=== PATIENT | male | born 1960 | race Caucasian/White ===

== ENCOUNTER 2018-11-25 05:13 | Day surgery (SDC) ==
[2018-11-20 12:27] LABS: HEMATOCRIT 44.9 % (42.0-52.0); MCH 28.6 PG (27-31); MCHC 33.4 g/dL (33-37); MCV 85.7 FL (81-99); MPV 10.5 FL (7.4-10.4); RBC 5.24 XMIL (4.7-6.1); WBC 9.45 X1000 (4.8-10.8)
[2018-11-20 12:54] LABS: AGAP 11; BUN 19 mg/dL (8-22); CALCIUM 9.6 mg/dL (8.8-10.2); CHLORIDE 99 mmol/L (98-107); COSMO 275; CREATININE 0.8 mg/dL (0.7-1.2); ESTIMATED GFR > 60; GLUCOSE 143 mg/dL (70-104); POTASSIUM 3.9 mmol/L (3.5-5.1); SODIUM 135 mmol/L (136-145); TCO2 25 mmol/L (25-35)
[2018-11-25] MEDS ORDERED: KEFZOL 1 GM/D5W 2 GM/100 ML IVPB ONE (06:04)
[2018-11-25] MEDS ORDERED: LR 500 ML ONE (06:04)
[2018-11-25] MEDS ORDERED: DIPRIVAN 1% ONE (06:28)
[2018-11-25] MEDS ORDERED: LR 1,000 ML ONE (06:33)
[2018-11-25] MEDS ORDERED: B & O 16A SUPP ONE (06:33)
[2018-11-25] MEDS ORDERED: SENSORCAINE 0.25%/EPI 1:200,000 ONE (06:33)
[2018-11-25] MEDS ORDERED: FENTANYL ONE (07:26)
[2018-11-25 08:01] LABS: BILIRUBIN URINE NEGATIVE (NEGATIVE); BLOOD URINE NEGATIVE (NEGATIVE); COLOR YELLOW; GLUCOSE URINE NEGATIVE (NEGATIVE); KETONE URINE NEGATIVE (NEGATIVE); LEUKOCYTES URINE NEGATIVE (NEGATIVE); NITRITE URINE NEGATIVE (NEGATIVE); PROTEIN URINE NEGATIVE (NEGATIVE); SP GRAVITY URINE 1.017; TURBIDITY URINE HAZY (CLEAR); UROBILINOGEN URINE NORMAL (NORMAL)
[2018-11-25] MEDS ORDERED: QUELICIN (DOSE) ONE (08:01)
[2018-11-25] MEDS ORDERED: ZEMURON ONE (08:01)
[2018-11-25] MEDS ORDERED: DECADRON ONE (08:01)
[2018-11-25] MEDS ORDERED: XYLOCAINE-MPF 2% ONE (08:01)
[2018-11-25] MEDS ORDERED: OFIRMEV 1000 MG/ISOTONIC SOLN 1,000 MG/100 ML BOTTLE ONE (08:01)
[2018-11-25] MEDS ORDERED: ZOFRAN ONE (08:01)
[2018-11-25 08:02] LABS: UR EPITHELIAL CELLS <10 /HPF (<10); URINE BACTERIA NEGATIVE /HPF; URINE RBC <10 /HPF (<10); URINE SOURCE CATH; URINE WBC <10 /HPF (<10)
[2018-11-25] MEDS ORDERED: EPHEDRINE ONE (08:28)
[2018-11-25] MEDS ORDERED: NS 1,000 ML ONE (12:43)
[2018-11-25] MEDS: DILAUDID ONE ×2 (13:00→13:04)
[2018-11-25] MEDS ORDERED: DITROPAN PO PRN (14:30)
[2018-11-25] MEDS ORDERED: OFIRMEV 1000 MG/ISOTONIC SOLN 1,000 MG/100 ML BOTTLE IV PRN (14:30)
[2018-11-25] MEDS ORDERED: OXY IR PO PRN (14:30)
[2018-11-25] MEDS ORDERED: LABETALOL IV PRN (14:30)
[2018-11-25] MEDS ORDERED: BENADRYL IV PRN (14:30)
[2018-11-25] MEDS ORDERED: PHENERGAN IV PRN (14:30)
--- NOTE | 2018-11-25 15:12 | OPERATIVE NOTE ---
PROCEDURE DATE: 11/25/2018 SURGEON: Parker Powell MD PREOPERATIVE DIAGNOSIS: Prostate cancer with areas of Sparta 3 + 4. POSTOPERATIVE DIAGNOSIS: Prostate cancer with areas of [place] 3 + 4. PROCEDURE PERFORMED: 1. Laparoscopic robot-assisted radical retropubic prostatectomy. 2. Modified bilateral pelvic lymph node dissection. ANESTHESIA: General endotracheal. FINDINGS: Normal-appearing prostate with seminal vesicles and vas deferens. The prostate was somewhat attached to the rectum. Normal-appearing bilateral pelvic lymph nodes. The patient is very obese. INDICATION FOR PROCEDURE: This 58-year-old male had a history of elevated PSA. Prostate ultrasound and biopsies revealed adenocarcinoma, Sparta grade 3 + 4, in several cores from the right side of the prostate and some areas of [place]a 3 + 3, with a core on the left side with [place]a 3 + 3. DESCRIPTION OF PROCEDURE: After informed consent was obtained from the patient and him receiving IV antibiotics, he was taken to the main OR, placed in the supine position, and general endotracheal anesthesia was achieved. He was then placed in the low lithotomy position and prepped and draped in the usual sterile fashion for abdominal, penile, and perineal surgery. An 18-[place] Waters catheter was passed through the patient's urethra, prostate, and into the bladder without difficulty, 10 mL sterile water was placed in the Waters balloon, and the Waters was placed to gravity drain. A small incision was made just above the umbilicus in the midline. This was for a 12 mm port to act as a camera port. The Veress needle was then pushed through the abdominal rectus fascia and into the abdominal cavity. A water drop test was performed that revealed the needle to be in good position. Pneumoperitoneum was achieved to 15 cm of water pressure using CO2. The robot trocars were then placed in the standard position with the #3 arm just above the right anterior superior iliac spine. The #1 arm was placed 1 handbreadth to the right of the camera port, and the #2 arm was placed approximately 2 handbreadths to the left of the camera port. A 12 mm biology research assistant port was placed in the left epigastric area. After the robot trocars were placed, the patient was placed in steep Trendelenburg and the table was lowered all the way. The robot was docked. The procedure was started by taking down adhesions of the left colon. The 4th arm was then used to retract the sigmoid colon cephalad. He had a very redundant colon and a large amount of adipose tissue but an incision was made in the peritoneum as it reflected off of the rectum about 2 cm above the reflection. This was taken down to the seminal vesicles and vas deferens which were buried in the adipose tissue but were able to be dissected free. The vascular pedicles were taken down with clips. Both sides were accomplished similarly. Attention was then turned to the anterior abdominal wall, where an incision was made medial to the internal inguinal ring and this incision was extended down into the pelvis to the vas deferens and up onto the anterior abdominal wall. Both sides were accomplished similarly. The medial and then median umbilical ligaments were taken down sharply with the electrocautery and the bladder was dropped off the anterior abdominal wall. Hemostasis and lymphostasis was achieved with electrocautery. The endopelvic fascia was entered lateral to the prostate and the incision was extended up to the puboprostatic ligaments and back to the base of the prostate. The puboprostatic ligaments were then taken down sharply. Both sides were accomplished similarly. The levator ani muscles were bluntly pushed off each side of the prostate. After this was completed, the dorsal vein complex was taken down by passing a 0 V-Loc suture under the dorsal vein complex twice and the suture was then pulled tight. The suture was then passed through the periosteum of the pubis, back under the dorsal vein complex, and then back through the periosteum of the pubis. This secures the dorsal vein complex and places a suspension on the dorsal vein complex. Attention was then turned to the bladder neck area, where an incision was made in the midline and extended laterally and the bladder was dissected off of the base of the prostate using electrocautery. The bladder was entered. The Waters catheter was pulled out of the cystotomy to act as a traction device. The posterior bladder neck was incised and the bladder was dissected off the remaining portion of the base of the prostate down to the previously dissected space. The seminal vesicles and vas deferens were brought through this area. The vascular pedicles to the prostate were taken down with clips. The prostate was bluntly and sharply dissected off of the rectum down to the apex of the prostate. Both sides were accomplished similarly. The dorsal vein complex was cauterized using the grasping forceps and incised. The urethra was exposed. The Waters catheter was pushed across the urethra and the anterior portion of the urethra was incised 2 mm distal to the apex of the prostate. The posterior urethra was incised and the remaining fibers of the rectourethralis muscle were incised and the specimen pulled out of the pelvis. The lymph node dissection was then performed, starting on the right side, the lymph nodes at the node of [place], and then dissected up the medial side of the external iliac vein to the bifurcation of the external iliac vein. The most inferior portion of the node dissection was the obturator nerve. The lateral sides were the external iliac vein and obturator internus muscle. Lymphostasis and hemostasis were achieved with electrocautery., The right side node package was placed with the prostate in an Endo Catch retrieval bag and moved to the side. The left node dissection was accomplished similarly. After each dissection, Surgicel SNoW was packed in the fossa. On the left side, the node package was too large to be removed through the 12 mm trocar and another Endo Catch retrieval bag was used to remove the left nodes. The bladder was reanastomosed to the urethra by first anastomosing the vesicovisceral fascia to the posterior rhabdomyolysis sphincter using a double-armed 3-0 V-Loc suture. The needles were not removed but moved to the side. Another double-armed 3-0 V-Loc suture was used to anastomose the bladder to the urethra. After the bladder was anastomosed to the urethra, a 16-[place] Waters catheter easily passed and irrigated and the bladder was distended to 60 mL. No leakage was seen. The Waters was placed to gravity drain. The needles that were used to anastomose the vesicovisceral fascia to the posterior rhabdosphincter, the needle on the right side was passed through the periosteum of the pubis, and likewise on the left side. Tension was placed on this and this was a urethral suspension. The needles were removed and passed out of the body. All needle counts were correct. The pneumoperitoneum was dropped to 3 cm of water and no bleeding areas were seen. He tolerated the procedure well. Estimated blood loss 100 mL. He was taken to recovery room in good condition. cc: Parker Powell MD
[2018-11-25] MEDS: KEFZOL 1 GM/D5W 1 GM/50 ML IVPB IV SCH ×2 (17:49→23:30)
[2018-11-25] MEDS ORDERED: ZOCOR PO SCH (21:00)
[2018-11-25] MEDS: GLUCOPHAGE PO SCH (22:05)
[2018-11-25] MEDS: PERIDEX MT SCH (22:05)
[2018-11-25] MEDS: PEPCID PO SCH (22:05)
[2018-11-25] MEDS: COLACE PO SCH (22:05)
[2018-11-25] MEDS: ENTRESTO 24 MG-26 MG TABLET PO SCH (22:06)
[2018-11-25] MEDS: OXY IR PO PRN (22:49)
[2018-11-26] MEDS: KEFZOL 1 GM/D5W 1 GM/50 ML IVPB IV SCH ×2 (04:23→08:18)
[2018-11-26] MEDS: OXY IR PO PRN (05:06)
[2018-11-26 06:03] LABS: HEMATOCRIT 42.3 % (42.0-52.0); HEMOGLOBIN 13.9 g/dL (14.0-18.0); MCH 28.9 PG (27-31); MCHC 32.9 g/dL (33-37); MCV 87.9 FL (81-99); RBC 4.81 XMIL (4.7-6.1); RDW 13.9 % (11.5-14.5); WBC 15.03 X1000 (4.8-10.8)
[2018-11-26 06:04] LABS: MPV 10.4 FL (7.4-10.4)
[2018-11-26 06:14] LABS: AGAP 11; BUN 15 mg/dL (8-22); CALCIUM 8.4 mg/dL (8.8-10.2); CHLORIDE 102 mmol/L (98-107); COSMO 279; CREATININE 0.7 mg/dL (0.7-1.2); ESTIMATED GFR > 60; GLUCOSE 151 mg/dL (70-104); POTASSIUM 4.1 mmol/L (3.5-5.1); SODIUM 138 mmol/L (136-145); TCO2 25 mmol/L (25-35)
[2018-11-26] MEDS: PEPCID PO SCH (08:16)
[2018-11-26] MEDS: PERIDEX MT SCH (08:16)
[2018-11-26] MEDS: ENTRESTO 24 MG-26 MG TABLET PO SCH (08:16)
[2018-11-26] MEDS: COLACE PO SCH (08:17)
[2018-11-26] MEDS: GLUCOPHAGE PO SCH (08:23)
[2018-11-26] MEDS ORDERED: TOPROL XL PO SCH (09:00)
[2018-11-26] MEDS ORDERED: ACTOS PO SCH (09:00)
[2018-11-26] MEDS ORDERED: PROCARDIA ER PO SCH (09:00)
[2018-11-26] MEDS ORDERED: ASPIRIN PO SCH (09:00)
[2018-11-26 11:03] VITALS: BP 138/84
== END 2018-11-26 11:57 | disposition home or self-care (01) ==
LOC: OR 05:13 → DIRADM 13:19 → INTOOBSV 13:19 → 4N 14:13 → OR 11-26 11:57
PROVIDERS: ATTEND Urology